=== PATIENT | female | born 1975 | race Caucasian/White ===

== ENCOUNTER 2016-10-13 23:16 | Emergency (ER) | payer MEDICAID, OTHER ==
[2016-10-13 23:27] VITALS: BP 144/86
--- OUTSIDE RECORDS SUMMARY | 2016-10-13 23:39 | XMS REPORT | Continuity of Care Document ---
:1975 Author Organization ([facility]) Address [address] [place] [address] Phone [phone] Care Team Providers Name Role Phone Ruth Rodriguez Primary Care Provider [phone] Source Comments This disclosure is being made pursuant to the Care Everywhere program, applicable federal and state laws, and may not contain all informaitonavailable regarding this patient. ([facility]) Active Allergies and Adverse Reactions No Known Allergies Current Medications Prescription Sig. Disp. Refills Start Date End Date Status albuterol 90 Use 2 Puffs by Active mcg/Actuation inhaler inhalation every 6 hours as needed. insulin glargine inject 35 Units Active (LanTUS) 100 unit/mL subcutaneously at injection vial bedtime. HYDROcodone-acetaminop Take 1 Tab by mouth 12 Tab 0 03/26/2013 Active hen 5-325 mg per every 6 hours as tablet needed. Indications: PAIN cyclobenzaprine 10 mg Take 1 Tab by mouth 3 9 Tab 0 03/26/2013 Active tablet times daily as needed. Indications: MUSCLE SPASM Active Problems Not on file Social History Tobacco Use Types Packs/Day Years Used Date Never Assessed Last Filed Vital Signs Vital Sign Reading Time Taken Blood Pressure 136/76 03/26/2013 11:41 AM CDT Pulse 86 03/26/2013 11:41 AM CDT Temperature 36.8 C (98.2 F) 03/26/2013 11:41 AM CDT Respiratory Rate 12 03/26/2013 11:41 AM CDT Height - - Weight - - Body Mass Index - - Oxygen Saturation 95% 03/26/2013 11:41 AM CDT Plan of Care Health Maintenance Due Date Last Done Comments Hepatitis B Vaccine (1 of 3 - Primary Series) 1975 Tdap Vaccine 1985 Lipid Disorder Screening 1992 MMR Vaccine 1992 Td Vaccine 1992 Cervical Cancer Screening 2004 Mammogram 2014 Influenza Vaccine: Seasonal (#1) 02/18/2016 Results from Last 3 Months Not on file
[2016-10-13] MEDS ORDERED: AMOX TR/POTASSIUM CLAVULANATE 875 MG TABLET PO ONE (23:59)
[2016-10-13] MEDS ORDERED: KETOROLAC TROMETHAMINE 60 MG/2 ML VIAL IM ONE (23:59)
--- NOTE | 2016-10-14 00:01 | ERNOTE ---
Integumentary HPI - General Presenting Symptoms: other - red nose Time Seen by Provider: 10/13/16 23:47 Source: patient Exam Limitations: no limitations - Immun/Allergies/Home Medications Immunizations: IMMUNIZATION HX Immunizations Up to Date Yes History of Influenza Vaccine No Hx Pneumococcal Vaccination No Allergies/Adverse Reactions: Allergies Allergy/AdvReac Type Severity Reaction Status Date / Time Iodinated Contrast Media - Allergy Vomiting Verified 10/12/15 18:15 Oral and [Iodinated Contrast Media - IV Dye] ondansetron HCl Allergy Verified 10/12/15 18:15 [From Zofran (as hydrochloride)] Home Medications: HOME MEDICATIONS Albuterol Sulfate [Ventolin Hfa] 2 puff IH Q4H PRN 10/03/15 [Last Taken Unknown] Amox Tr/Potassium Clavulanate [Augmentin 875-125 Tablet] 875 mg PO Q12H #20 tab 10/14/16 [Last Taken Unknown] Nabumetone [Relafen] 500 mg PO BID #14 tablet 10/14/16 [Last Taken Unknown] - Pain Pain Score: 6 - History of Present Illness Narrative: pt has had increasing redness and pain of the tip of her nose for 1 week Location: Reports: facial Quality: Reports: painful Severity: moderate Exposure: Reports: no cause identified Modifying Factors - (Improves): Reports: nothing Associated Symptoms: Reports: rash - on her head that is itching Review of Systems - Review of Systems Constitutional: Absent: recent illness, fever EYE: Present: no symptoms reported ENT: Present: nose congestion Respiratory: Absent: cough Cardiology: Present: no symptoms reported Gastrointestinal/Abdominal: Present: no symptoms reported Genitourinary: Present: no symptoms reported Musculoskeletal: Present: no symptoms reported Skin: Present: See HPI, rash Neurological: Present: no symptoms reported Endocrine: Present: no symptoms reported Hematologic/Lymphatic: Present: no symptoms reported Psych: Present: no symptoms reported - Patient's Past Medical History Patient History - Medical: Anxiety, Diabetes Type 2, Depression Patient History - Cardiac/Respiratory: Arrhythmias, Asthma, COPD, CVA/Stroke, Hypertension, Hyperlipidemia Patient History - Cancer: No Hx of Cancer Patient History - Surgical Procedures: , Tubal Ligation Patient History - Other: None LMP (females 10-50): 3 weeks - Family History mom Family History - Medical: Family History - Cardiac/Respiratory: COPD dad Family History - Medical: Family History - Cardiac/Respiratory: COPD - Social History Living Situations: home Abuse History: No History of abuse Psych History: No pertinent hx, Hx of Anxiety, Hx of Depression Smoking Status: Current every day smoker Patient requests Smoking Cessation Consult: No Initiate information on Smoking Cessation: No Alcohol Use: occasionally Drug Use: none - Immunizations Immunizations Up to Date: Yes Hx Pneumococcal Vaccination: No History of Influenza Vaccine: No Physical Exam - Physical Exam General Appearance: Present: wd/wn, alert, no apparent distress Eye Exam: Normal inspection: bilateral Ears, Nose, Throat: Present: nasal congestion - and erythema, pharyngeal erythema - mild with PND Neck: Present: normal inspection Respiratory: Present: no respiratory distress, no accessory muscle use Back Exam: Present: normal inspection Extremity Exam: Present: normal inspection Neurological Exam: Present: alert, oriented, normal mood/affect Skin Exam: Present: other - tip of nose is moderately erythematous and tender, no fluctuance, no papules or pustules. ED Progress - Vital Signs Patient's Vital Signs:: I have reviewed the patient's vital signs. Vital Signs: Vital Signs 10/13/16 23:22 Temperature 36.8 C Pulse Rate 117 H Respiratory 18 Rate Blood Pressure 144/86 O2 Sat by Pulse 100 Oximetry - Progress/Reassessment Chief Complaint: Abscess Departure Clinical Impression: Acute bacterial sinusitis Cellulitis Qualifiers: Site of cellulitis: face Qualified Code(s): L03.211 - Cellulitis of face - Departure Disposition: Home self-care Condition: Good Instructions: Sinusitis, Adult, [id number], Cellulitis, Adult, [id number] Additional Instructions: Warm wash cloths to nose for 10-15 minutes as much as every hour. Prescriptions: Amox Tr/Potassium Clavulanate [Augmentin 875-125 Tablet] 875 mg PO Q12H #20 tab Nabumetone [Relafen] 500 mg PO BID #14 tablet
[2016-10-14] MEDS ORDERED: KETOROLAC TROMETHAMINE 60 MG/2 ML VIAL IM ONE (00:05)
[2016-10-14] MEDS ORDERED: AMOX TR/POTASSIUM CLAVULANATE 875 MG TABLET ONE (00:06)
== END 2016-10-14 00:36 | disposition home or self-care (01) ==
LOC: ER 23:16
DX: J01.90 Acute sinusitis, unspecified (principal); B96.89 Other specified bacterial agents as the cause of diseases classified elsewhere; L03.211 Cellulitis of face; F17.210 Nicotine dependence, cigarettes, uncomplicated

== ENCOUNTER 2016-10-16 00:11 | Emergency (ER) | payer OTHER ==
--- OUTSIDE RECORDS SUMMARY | 2016-10-16 00:54 | XMS REPORT | Continuity of Care Document ---
:1975 Author Organization [facility] ([facility]) Address [address] [place] [address] Phone [phone] Care Team Providers Name Role Phone Ruth Rodriguez Primary Care Provider [phone] Source Comments This disclosure is being made pursuant to the Care Everywhere program, applicable federal and state laws, and may not contain all informaitonavailable regarding this patient.[facility] ([facility]) Active Allergies and Adverse Reactions No [...]
--- NOTE | 2016-10-16 01:01 | ERNOTE ---
Medical Problem HPI - General Chief Complaint: Nausea/Vomiting Source: patient Exam Limitations: no limitations - Immun/Allergies/Home Medications Immunizations: IMMUNIZATION HX Immunizations Up to Date No History of Influenza Vaccine No Hx Pneumococcal Vaccination No Allergies/Adverse Reactions: Allergies Iodinated Contrast Media - Oral and [Iodinated Contrast Media - IV Dye] Allergy (Verified 10/16/16 00:27) Vomiting ondansetron HCl [From Zofran (as hydrochloride)] Allergy (Verified 10/16/16 00: 27) Home Medications: HOME MEDICATIONS Albuterol Sulfate [Ventolin Hfa] 2 puff IH Q4H PRN 10/03/15 [Last Taken Unknown] Amox Tr/Potassium Clavulanate [Augmentin 875-125 Tablet] 875 mg PO Q12H #20 tab 10/14/16 [Last Taken Unknown] Nabumetone [Relafen] 500 mg PO BID #14 tablet 10/14/16 [Last Taken 10/15/16 23: 27] Clindamycin HCl [Cleocin HCl] 300 mg PO TID #30 capsule 10/16/16 [Last Taken Unknown] - History of Present History Narrative: Pt was seen here for sinusitis two days ago and now has nausea and abdominal pain Timing: constant, getting worse Severity: moderate Review of Systems - Review of Systems Constitutional: Present: recent illness, fatigue EYE: Present: no symptoms reported ENT: Present: nose pain, nose congestion, other - headache Respiratory: Present: no symptoms reported Cardiology: Present: no symptoms reported Gastrointestinal/Abdominal: Present: no symptoms reported Genitourinary: Present: no symptoms reported Musculoskeletal: Present: no symptoms reported - Patient's Past Medical History Patient History - Medical: Anxiety, Diabetes Type 2, Depression Patient History - Cardiac/Respiratory: Arrhythmias, Asthma, COPD, CVA/Stroke, Hypertension, Hyperlipidemia Patient History - Cancer: No Hx of Cancer Patient History - Surgical Procedures: Cholecystectomy, , Tubal Ligation Patient History - Other: None LMP (Calendar): 09/17/16 - Family History mom Family History - Medical: Family History - Cardiac/Respiratory: COPD dad Family History - Medical: Family History - Cardiac/Respiratory: COPD - Social History Living Situations: home Abuse History: No History of abuse Psych History: Hx of Anxiety, Hx of Depression Smoking Status: Current every day smoker Alcohol Use: none Drug Use: none - Immunizations Immunizations Up to Date: No Hx Pneumococcal Vaccination: No History of Influenza Vaccine: No Physical Exam - Physical Exam General Appearance: Present: wd/wn, alert, no apparent distress Ears, Nose, Throat: Present: nasal congestion - erythema and green discharge Neck: Present: normal inspection, tender lateral Gastrointestinal/Abdominal: Present: normal bowel sounds, tenderness - diffuse upper quads. Absent: guarding, rebound Extremity Exam: Present: normal inspection, normal range of motion Neurological Exam: Present: alert, oriented Skin Exam: Present: normal color, warm/dry ED Progress - Vital Signs Patient's Vital Signs:: I have reviewed the patient's vital signs. Vital Signs: Vital Signs 10/16/16 00:21 Temperature 35.9 C L Pulse Rate 110 H Respiratory 18 Rate Blood Pressure 156/78 O2 Sat by Pulse 99 Oximetry - Progress/Reassessment Chief Complaint: Nausea/Vomiting Departure - Departure Clinical Impression: Acute bacterial sinusitis Disposition: Home Follow Up Needed Condition: Good Instructions: Sinusitis, Adult, [id number], Sinus Headache Additional Instructions: warm packs to your face and some triple antibiotic just inside the nose will help the sore there heal Prescriptions: Clindamycin HCl [Cleocin HCl] 300 mg PO TID #30 capsule
[2016-10-16] MEDS ORDERED: traMADol HCL 50 MG TABLET PO ONE (01:22)
[2016-10-16] MEDS ORDERED: CLINDAMYCIN HCL 150 MG CAPSULE PO ONE (01:23)
[2016-10-16] MEDS ORDERED: CLINDAMYCIN HCL 150 MG CAPSULE ONE (01:27)
[2016-10-16] MEDS ORDERED: traMADol HCL 50 MG TABLET ONE (01:27)
[2016-10-16 01:39] VITALS: BP 149/64
== END 2016-10-16 01:38 | disposition home or self-care (01) ==
LOC: ER 00:11
DX: J32.8 Other chronic sinusitis (principal); B96.89 Other specified bacterial agents as the cause of diseases classified elsewhere; Z72.0 Tobacco use

== ENCOUNTER 2016-10-31 22:08 | Emergency (ER) | payer OTHER ==
[2016-10-31] MEDS ORDERED: CEPHALEXIN MONOHYDRATE 250 MG CAPSULE PO ONE (22:51)
[2016-10-31 22:54] LABS: Urine Bilirubin Negative (NEGATIVE); Urine Blood 250 /ul (NEGATIVE); Urine Ketone Negative (NEGATIVE); Urine Protein 15 mg/dL (NEGATIVE); Urine Specific Gravity 1.015 SP.GR. (1.005-1.010); Urine Urobilinogen Normal (NORMAL)
--- NOTE | 2016-10-31 22:55 | ERNOTE ---
ER Female HPI Date of Service: 10/31/16 Stated Complaint: BLOOD IN URINE Source: patient Exam Limitations: no limitations Immunizations: IMMUNIZATION HX Immunizations Up to Date No History of Influenza Vaccine No Hx Pneumococcal Vaccination No Allergies/Adverse Reactions: Allergies Iodinated Contrast Media - Oral and [Iodinated Contrast Media - IV Dye] Allergy (Verified 10/16/16 00:27) Vomiting ondansetron HCl [From Zofran (as hydrochloride)] Allergy (Verified 10/16/16 00: 27) Home Medications: HOME MEDICATIONS Albuterol Sulfate [Ventolin Hfa] 2 puff IH Q4H PRN 10/03/15 [Last Taken Unknown] Cephalexin Monohydrate [Keflex] 500 mg PO TID #21 capsule 11/01/16 [Last Taken Unknown] Phenazopyridine HCl [Pyridium] 100 mg PO TID PRN #10 tablet 11/01/16 [Last Taken Unknown] - History of Present Illness Narrative: 41 year old with a two day history of dysuria and hematuria. Complaints of mild left back pain. The symptoms are similar to other UTIs that she has had previously. Complaints of chest pressure for the last three days which may be related to GERD. The patient has declined investigating the etiology of the chest pain. Timing: Present: getting worse Quality: Present: severe, burning Onset Location: Present: other Radiation: Present: back Activities at Onset: Present: none Prior Abdominal Problems: Present: none Modifying Factors - (Improves): Present: other Modifying Factors - (Worsens): Present: urinating Associated Symptoms: Present: fever/chills - chills infrequently Review of Systems - Review of Systems Constitutional: Present: chills EYE: Present: no symptoms reported ENT: Present: no symptoms reported Respiratory: Present: no symptoms reported Cardiology: Present: no symptoms reported Gastrointestinal/Abdominal: Present: no symptoms reported Genitourinary: Present: See HPI Musculoskeletal: Present: no symptoms reported Skin: Present: no symptoms reported Neurological: Present: no symptoms reported Endocrine: Present: no symptoms reported Hematologic/Lymphatic: Present: no symptoms reported - Patient's Past Medical History Patient History - Medical: Anxiety, Diabetes Type 2, Depression Patient History - Cardiac/Respiratory: Arrhythmias, Asthma, COPD, CVA/Stroke, Hypertension, Hyperlipidemia Patient History - Cancer: No Hx of Cancer Patient History - Surgical Procedures: Cholecystectomy, , Tubal Ligation Patient History - Other: None LMP (females 10-50): last week LMP (Calendar): 09/17/16 - Family History mom Family History - Medical: Family History - Cardiac/Respiratory: COPD dad Family History - Medical: Family History - Cardiac/Respiratory: COPD - Social History Living Situations: spouse Abuse History: No History of abuse Psych History: Hx of Anxiety, Hx of Depression Smoking Status: Current every day smoker Have you smoked in the past 12 months: Yes Alcohol Use: rarely Drug Use: none - Immunizations Immunizations Up to Date: No Hx Pneumococcal Vaccination: No History of Influenza Vaccine: No Physical Exam - Physical Exam General Appearance: Present: no apparent distress Eye Exam: Normal inspection: bilateral, PERRL: bilateral Ears, Nose, Throat: Present: normal ENT inspection Neck: Present: normal inspection Respiratory: Present: no respiratory distress Cardiovascular/Chest: Present: regular rate, rhythm Gastrointestinal/Abdominal: Present: nontender, nondistended Back Exam: Present: normal inspection Extremity Exam: Present: normal inspection Neurological Exam: Present: alert, oriented, normal mood/affect, 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 - Vital Signs Vital Signs: Vital Signs 10/31/16 22:16 Temperature 37.0 C Pulse Rate 88 Respiratory 14 Rate Blood Pressure 162/86 O2 Sat by Pulse 100 Oximetry - Progress/Reassessment Chief Complaint: Genitourinary Problem Progress Note-Subjective: 11/01/16 00:54 Given Pyridium 100 mg po and Keflex 500 mg po. Departure Clinical Impression: UTI (urinary tract infection) - Departure Disposition: Home self-care Condition: Good Instructions: Urinary Tract Infection, Adult, [id number] Print Language: Slovak Additional Instructions: Drink lots of water to keep the urine dilute. Cranberry juice is useful also. Prescriptions: Cephalexin Monohydrate [Keflex] 500 mg PO TID #21 capsule Phenazopyridine HCl [Pyridium] 100 mg PO TID PRN #10 tablet PRN Reason: Pain
[2016-10-31] MEDS ORDERED: CEPHALEXIN MONOHYDRATE 250 MG CAPSULE ONE (22:57)
[2016-10-31 23:08] LABS: Urine Appearance Slightly Cloudy; Urine Color Yellow; Urine Nitrite Positive (NEGATIVE)
[2016-10-31 23:09] LABS: Urine Bacteria 2+; Urine RBC >50 /hpf (0-5); Urine Renal Epithelial Cell Few - 1+ /hpf; Urine Squamous Epithelial Cell Moderate - 2+ /hpf; Urine WBC 25-50 /hpf (0-5)
[2016-11-01 01:01] VITALS: BP 144/74
--- OUTSIDE RECORDS SUMMARY | 2016-11-01 01:32 | XMS REPORT | Continuity of Care Document ---
:1975 Author Organization [facility] ([facility]) Address [address] [place] [address] Phone [phone] Care Team Providers Name Role Phone Ruth Rodriguez Primary Care Provider [phone] Source Comments This disclosure is being made pursuant to the Care Everywhere program, applicable federal and state laws, and may not contain all informaitonavailable regarding this patient.[facility] ([facility]) Active Allergies and Adverse Reactions No [...]
== END 2016-11-01 01:00 | disposition home or self-care (01) ==
LOC: ER 22:08
DX: N39.0 Urinary tract infection, site not specified (principal); F17.210 Nicotine dependence, cigarettes, uncomplicated; M54.5 Low back pain; K21.9 Gastro-esophageal reflux disease without esophagitis

== ENCOUNTER 2017-04-01 18:53 | Emergency (ER) | payer OTHER ==
--- NOTE | 2017-04-01 19:08 | ERNOTE ---
<Denise Eng - Last Filed: 04/01/17 19:44> Medical Problem HPI - General Time Seen by Provider: 04/01/17 19:01 Source: patient Exam Limitations: no limitations - Immun/Allergies/Home Medications Immunizations: IMMUNIZATION HX Immunizations Up to Date Yes History of Influenza Vaccine No Hx Pneumococcal Vaccination No Allergies/Adverse Reactions: Allergies Iodinated Contrast- Oral and IV Dye [Iodinated Contrast Media - IV Dye] Allergy (Verified 04/01/17 19:10) Vomiting ondansetron HCl [From Zofran (as hydrochloride)] Allergy (Verified 04/01/17 19: 10) Home Medications: HOME MEDICATIONS Albuterol Sulfate [Ventolin Hfa] 2 puff IH Q4H PRN 10/03/15 [Last Taken Unknown] Insulin Glargine,Hum.rec.anlog [Lantus] 20 units SC HS 04/02/17 [Last Taken Unknown] Insulin Lispro [Humalog] unit SQ TID 04/02/17 [Last Taken Unknown] - History of Present History Narrative: here for blurry vision and feeling weak since this am. Denies any headaches or nausea or vomiting. Symptoms began at 6 am this am however pt came to ED at 1900 Review of Systems - Review of Systems Constitutional: Present: weakness, fatigue, malaise EYE: Present: blurred vision - weakness is generalized and vision is a new finding and patient denies having blurred vision yesterday. He denies having a headache ENT: Present: no symptoms reported Respiratory: Present: no symptoms reported Cardiology: Present: no symptoms reported Gastrointestinal/Abdominal: Present: no symptoms reported Genitourinary: Present: no symptoms reported Musculoskeletal: Present: other - she complains of generalized weakness and upper arms and legs Skin: Present: no symptoms reported Neurological: Present: See HPI, weakness - this is generalized no focal neurological deficits reported. - Patient's Past Medical History Patient History - Medical: Anxiety, Diabetes Type 2, Depression Patient History - Cardiac/Respiratory: Arrhythmias, Asthma, COPD, CVA/Stroke, Hypertension, Hyperlipidemia Patient History - Cancer: No Hx of Cancer Patient History - Surgical Procedures: Back Surgery, Cholecystectomy, , Tubal Ligation Patient History - Other: None LMP (Calendar): 09/17/16 - Family History mom Family History - Medical: Family History - Cardiac/Respiratory: COPD dad Family History - Medical: Family History - Cardiac/Respiratory: COPD - Social History Living Situations: home Abuse History: No History of abuse Psych History: Hx of Anxiety, Hx of Depression Alcohol Use: rarely Drug Use: none - Immunizations Immunizations Up to Date: Yes Hx Pneumococcal Vaccination: No History of Influenza Vaccine: No Physical Exam - Physical Exam General Appearance: Present: wd/wn, alert - patient is awake and alert in no acute distress she is very sad fell and she starts crying stating that she has issues between herself and her spouse., no apparent distress Head Exam: Present: normal inspection, no evidence of injury Eye Exam: Normal inspection: bilateral, PERRL: bilateral, EOMI: bilateral Ears, Nose, Throat: Present: normal ENT inspection Neck: Present: normal inspection, nontender, supple, full range of motion. 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 DTR intact in patellar and Achilles reflexes. Skin Exam: Present: normal color, warm/dry Lymphatic Exam: Present: no adenopathy ED Progress - Results and Orders Patient's Lab Results:: I have reviewed the patient's lab results. - Vital Signs Patient's Vital Signs:: I have reviewed the patient's vital signs. - Transfer of Care Physician Sign Out: Denise Eng Receiving Physician: Kyle Kapoor Pending Results: CT/MRI results, Labs Expected Disposition: Discharge, Transfer Departure - Departure Clinical Impression: Weakness Disposition: Home Follow Up Needed Condition: Good Instructions: Weakness, [id number] Additional Instructions: See your primary care doctor as soon as possible for further testing or referral <Kyle Kapoor - Last Filed: 04/06/17 22:09> Medical Problem HPI - Immun/Allergies/Home Medications Immunizations: IMMUNIZATION HX Immunizations Up to Date Yes History of Influenza Vaccine No Hx Pneumococcal Vaccination No ED Progress - Results and Orders Patient's Lab Results:: I have reviewed the patient's lab results. Results and Orders: Laboratory Tests 04/01/17 04/01/17 04/01/17 19:15 19:15 19:15 WBC 8.9 Hgb 12.3 L Hct 35.7 L Plt Count 316 ESR D-Dimer Sodium 137 Potassium 4.3 Chloride 102 BUN 12 Creatinine 0.71 Random Glucose 307 H Calcium 8.2 Total Bilirubin 0.1 ALT 20 Alkaline Phosphatase 88 Troponin I Less than 0.017 C-Reactive Prot, Quant 0.4 Total Protein 6.8 Albumin 2.9 L TSH 1.510 Urine Color Urine Appearance Urine pH Ur Specific [place] Urine Protein Urine Glucose (UA) Urine Ketones Urine Blood Urine Nitrate Urine Bilirubin Urine Urobilinogen Ur Leukocyte Esterase Urine RBC Urine WBC Ur Epithelial Cells Urine Bacteria Urine Culture Comments Urine Opiates Screen Barbiturate Screen Ur Phencyclidine Scrn Urine Amphetamine U Benzodiazepines Scrn Urine Cocaine Screen Urine Marijuana (THC) 04/01/17 04/01/17 04/01/17 19:15 19:42 20:14 WBC Hgb Hct Plt Count ESR 12 D-Dimer 0.29 D Sodium Potassium Chloride BUN Creatinine Random Glucose Calcium Total Bilirubin ALT Alkaline Phosphatase Troponin I C-Reactive Prot, Quant Total Protein Albumin TSH Urine Color Urine Appearance Urine pH Ur Specific [place] Urine Protein Urine Glucose (UA) Urine Ketones Urine Blood Urine Nitrate Urine Bilirubin Urine Urobilinogen Ur Leukocyte Esterase Urine RBC Urine WBC Ur Epithelial Cells Urine Bacteria Urine Culture Comments Urine Opiates Screen Negative Barbiturate Screen Negative Ur Phencyclidine Scrn Negative Urine Amphetamine Negative U Benzodiazepines Scrn Negative Urine Cocaine Screen Negative Urine Marijuana (THC) Negative 04/01/17 Unknown WBC Hgb Hct Plt Count ESR D-Dimer Sodium Potassium Chloride BUN Creatinine Random Glucose Calcium Total Bilirubin ALT Alkaline Phosphatase Troponin I C-Reactive Prot, Quant Total Protein Albumin TSH Urine Color Yellow Urine Appearance Clear Urine pH 5.0 Ur Specific [place] 1.020 Urine Protein Negative Urine Glucose (UA) >=1000 H Urine Ketones Negative Urine Blood Negative Urine Nitrate Negative Urine Bilirubin Negative Urine Urobilinogen Normal Ur Leukocyte Esterase Negative Urine RBC None seen Urine WBC None seen Ur Epithelial Cells 5-10 H Urine Bacteria 4+ H Urine Culture Comments No culture indicated Urine Opiates Screen Barbiturate Screen Ur Phencyclidine Scrn Urine Amphetamine U Benzodiazepines Scrn Urine Cocaine Screen Urine Marijuana (THC) - Vital Signs Vital Signs: Vital Signs 04/01/17 04/01/17 04/01/17 18:59 19:00 19:45 Temperature 36.9 C Pulse Rate 96 83 76 Respiratory 20 18 19 Rate Blood Pressure 127/91 127/91 134/63 O2 Sat by Pulse 98 97 96 Oximetry 04/01/17 04/01/17 04/01/17 20:16 20:46 21:16 Temperature Pulse Rate 75 78 78 Respiratory 20 18 18 Rate Blood Pressure 140/95 146/75 122/38 O2 Sat by Pulse Oximetry 04/01/17 04/01/17 04/01/17 21:46 22:00 22:15 Temperature 36.5 C Pulse Rate 79 75 79 Respiratory 21 H 19 16 Rate Blood Pressure 129/61 123/61 138/65 O2 Sat by Pulse 98 Oximetry 04/01/17 04/01/17 22:54 23:10 Temperature Pulse Rate 74 79 Respiratory 18 13 Rate Blood Pressure 129/74 104/44 O2 Sat by Pulse 95 99 Oximetry - Progress/Reassessment Progress Note-Subjective: 04/02/17 00:31 discussed her mostly normal findings and her elevated blood sugars that can cause many of these symptoms. She and her agree that her blood sugars have been this high 300-400 for years. I told them that there was nothing else I could do to further explore her symptoms and she would need outpatient evaluation to further explore her symptoms
[2017-04-01 19:21] LABS: Hematocrit 35.7 % (37.0-47.0); Hemoglobin 12.3 gm/dL (12.5-16.0); Mean Corpuscular Hemoglobin 27.6 pg (27-31); Mean Corpuscular Hgb Conc 34.5 g/dl (32-36); Mean Platelet Volume 9.9 fl (6.0-9.5); Neutrophil # 4.8 K/mm3 (1.3-6.0); Neutrophil % 54.2 % (42-75.0); Platelet Count 316 K/mm3 (150-450); Red Blood Count 4.46 M/mm3 (4.2-5.4); Red Cell Distribution Width 14.2 % (11.5-14.0); White Blood Count 8.9 K/mm3 (4.0-10.5)
[2017-04-01 19:43] LABS: Albumin * 2.9 gm/dl (3.4-5.0); Anion Gap 14.3 mmol/L (6.8-13.8); BUN/Creatinine Ratio 16.9 (9.0-21.6); Bilirubin, Total 0.1 mg/dL (0.0-1.1); Ca. Corrected For Albumin 8.8 mg/dL (8.4-10.2); Calcium * 8.2 mg/dL (7.9-10.9); Potassium 4.3 mmol/L (3.4-4.6); TSH * 1.51 uIU/mL (0.358-3.74); Total Protein 6.8 gm/dL (6.2-8.2)
[2017-04-01 20:23] LABS: Cocaine Ur Negative (NEGATIVE); Urine Barbiturate Negative (NEGATIVE); Urine Benzodiazepines Negative (NEGATIVE); Urine Opiates Negative (NEGATIVE); Urine PCP Negative (NEGATIVE); Urine THC Negative (NEGATIVE)
[2017-04-01 20:31] LABS: CRP 0.4 mg/dL (0.0-0.9); Troponin I Less than 0.017 ng/ml (0.00-0.10)
[2017-04-01] MEDS ORDERED: ACETAMINOPHEN 500 MG TABLET PO ONE (21:48)
[2017-04-01] MEDS ORDERED: NORMAL SALINE 1,000 ML IV ONE (21:52)
[2017-04-01 21:54] LABS: Urine Bilirubin Negative (NEGATIVE); Urine Blood Negative /ul (NEGATIVE); Urine Ketone Negative (NEGATIVE); Urine Nitrite Negative (NEGATIVE); Urine Protein Negative (NEGATIVE); Urine Urobilinogen Normal (NORMAL)
[2017-04-01 22:17] LABS: Urine Appearance Clear; Urine Color Yellow
[2017-04-01 22:18] LABS: Urine Bacteria 4+; Urine RBC None Seen /hpf (0-5); Urine WBC None Seen /hpf (0-5)
[2017-04-02 00:48] VITALS: BP 137/67
== END 2017-04-02 00:45 | disposition home or self-care (01) ==
LOC: ER 18:53
DX: R53.1 Weakness (principal); E11.9 Type 2 diabetes mellitus without complications; Z79.4 Long term (current) use of insulin

== ENCOUNTER 2017-05-12 21:57 | Emergency (ER) | payer OTHER ==
[2017-05-12 23:33] VITALS: BP 138/68
--- NOTE | 2017-05-12 23:39 | ERNOTE ---
Time Seen by Provider: 05/12/17 22:42 Stated Complaint: SORE THROAT, SINUS PRESSURE, ? FEVER Immunizations: IMMUNIZATION HX Immunizations Up to Date Yes History of Influenza Vaccine No Hx Pneumococcal Vaccination No Allergies/Adverse Reactions: Allergies Iodinated Contrast- Oral and IV Dye [Iodinated Contrast Media - IV Dye] Allergy (Verified 05/12/17 22:14) Vomiting ondansetron HCl [From Zofran (as hydrochloride)] Allergy (Verified 05/12/17 22: 14) Home Medications: HOME MEDICATIONS Albuterol Sulfate [Ventolin Hfa] 2 puff IH Q4H PRN 10/03/15 [Last Taken Unknown] Insulin Glargine,Hum.rec.anlog [Lantus] 20 units SC HS 04/02/17 [Last Taken Unknown] Insulin Lispro [Humalog] unit SQ TID 04/02/17 [Last Taken Unknown] Albuterol Sulfate [Ventolin HFA] 1 puff IH Q6H #2 inhaler 05/12/17 [Last Taken Unknown] Clopidogrel Bisulfate [Plavix] 75 mg PO 05/12/17 [Last Taken Unknown] Lisinopril [Prinivil] 10 mg PO DAILY 05/12/17 [Last Taken Unknown] Metoprolol Tartrate [Lopressor] 25 mg PO BID 05/12/17 [Last Taken Unknown] Omeprazole 40 mg PO DAILY PRN 05/12/17 [Last Taken Unknown] - History of Present Ilness Narrative: 41-year-old female comes to emergency Department with 3 days of cough which is intermittently productive of a clear colored sputum. He is also complaining of a burning sensation to her eyes and scratching to the back of her throat. She doesn't have any nausea or vomiting. She says today she thought she had a fever which triggered her to come to the emergency department. She has a sick child that she's been exposed to had croup in another child who had strep. Patient has no other complaints Review of Systems - Review of Systems Constitutional: Present: malaise EYE: Present: no symptoms reported ENT: Present: nose congestion, sore throat Respiratory: Present: cough Cardiology: Present: no symptoms reported Gastrointestinal/Abdominal: Present: no symptoms reported Genitourinary: Present: no symptoms reported Musculoskeletal: Present: no symptoms reported Skin: Present: no symptoms reported Neurological: Present: no symptoms reported Endocrine: Present: no symptoms reported Hematologic/Lymphatic: Present: no symptoms reported Psych: Present: no symptoms reported All Other Systems: All systems neg except as marked - Patient's Past Medical History Patient History - Medical: Anxiety, Diabetes Type 2, Depression Patient History - Cardiac/Respiratory: Arrhythmias, Asthma, COPD, CVA/Stroke, Hypertension, Hyperlipidemia, Myocardial Infarction Patient History - Cancer: No Hx of Cancer Patient History - Surgical Procedures: Back Surgery, Cholecystectomy, Cardiac stent, , Tubal Ligation Patient History - Other: None LMP (Calendar): 04/20/17 - Family History mom Family History - Medical: Family History - Cardiac/Respiratory: COPD dad Family History - Medical: Family History - Cardiac/Respiratory: COPD - Social History Living Situations: home Abuse History: No History of abuse Psych History: Hx of Anxiety, Hx of Depression Smoking Status: Current every day smoker Alcohol Use: occasionally Drug Use: none - Immunizations Immunizations Up to Date: Yes Hx Pneumococcal Vaccination: No History of Influenza Vaccine: No Physical Exam - Physical Exam General Appearance: Present: wd/wn, alert, no apparent distress Head Exam: Present: normal inspection, no evidence of injury Eye Exam: Normal inspection: bilateral, PERRL: bilateral Ears, Nose, Throat: Present: other - patient has uvular swelling. No pharyngeal erythema. No tonsillar exudate. Neck: Present: normal inspection Respiratory: Present: no respiratory distress, lungs clear, other - lungs are completely clear without crackles wheezes or cough Cardiovascular/Chest: Present: regular rate, rhythm, no murmur, normal peripheral pulses Gastrointestinal/Abdominal: Present: normal bowel sounds, nontender, nondistended, soft, no organomegaly Back Exam: Present: normal inspection, normal range of motion, no CVA tenderness Extremity Exam: Present: normal inspection, non-tender, no edema Neurological Exam: Present: alert, oriented, normal mood/affect, no motor/ sensory deficits Skin Exam: Present: normal color, warm/dry Lymphatic Exam: Present: no adenopathy ED Progress - Vital Signs Patient's Vital Signs:: I have reviewed the patient's vital signs. Vital Signs: Vital Signs 05/12/17 05/12/17 05/12/17 22:08 22:38 23:32 Temperature 37.0 C 36.8 C Pulse Rate 95 95 90 Respiratory 18 16 Rate Blood Pressure 161/93 138/68 O2 Sat by Pulse 100 96 Oximetry - Progress/Reassessment Chief Complaint: Upper Respiratory Symptoms Departure Clinical Impression: Upper respiratory infection - Departure Disposition: Home self-care Condition: Stable Instructions: Upper Respiratory Infection, Adult, [id number] Additional Instructions: As we discussed her symptoms are those of a viral upper respiratory syndrome. This is something her body should fight off over the next couple of days. He continue using Motrin to help with the aches in general not feeling good associated with this. Call your family doctor and set up a follow-up appointment. Use the inhaler as needed. Return for new or worrisome symptoms Prescriptions: Albuterol Sulfate [Ventolin HFA] 1 puff IH Q6H #2 inhaler
== END 2017-05-12 23:40 | disposition home or self-care (01) ==
LOC: ER 21:57
DX: J06.9 Acute upper respiratory infection, unspecified (principal); I25.2 Old myocardial infarction; I10 Essential (primary) hypertension; F17.200 Nicotine dependence, unspecified, uncomplicated

== ENCOUNTER 2017-05-26 08:55 | Emergency (ER) | payer OTHER ==
[2017-05-26 09:08] VITALS: BP 168/95
--- NOTE | 2017-05-26 09:30 | ERNOTE ---
ER Female HPI Stated Complaint: YEAST INFECTION Presenting Symptoms: vaginal discharge Time Seen by Provider: 05/26/17 09:14 Source: patient Exam Limitations: no limitations Immunizations: IMMUNIZATION HX Immunizations Up to Date Yes History of Influenza Vaccine No Hx Pneumococcal Vaccination No Allergies/Adverse Reactions: Allergies Iodinated Contrast- Oral and IV Dye [Iodinated Contrast Media - IV Dye] Allergy (Verified 05/26/17 09:08) Vomiting ondansetron HCl [From Zofran (as hydrochloride)] Allergy (Verified 05/26/17 09: 08) Home Medications: HOME MEDICATIONS Albuterol Sulfate [Ventolin Hfa] 2 puff IH Q4H PRN 10/03/15 [Last Taken Unknown] Insulin Glargine,Hum.rec.anlog [Lantus] 20 units SC HS 04/02/17 [Last Taken Unknown] Insulin Lispro [Humalog] 3 unit SQ TID 04/02/17 [Last Taken Unknown] Albuterol Sulfate [Ventolin HFA] 1 puff IH Q6H #2 inhaler 05/12/17 [Last Taken Unknown] Clopidogrel Bisulfate [Plavix] 75 mg PO DAILY 05/12/17 [Last Taken Unknown] Lisinopril [Prinivil] 10 mg PO DAILY 05/12/17 [Last Taken Unknown] Metoprolol Tartrate [Lopressor] 25 mg PO BID 05/12/17 [Last Taken Unknown] Omeprazole 40 mg PO DAILY PRN 05/12/17 [Last Taken Unknown] Fluconazole [Diflucan] 150 mg PO ONCE #1 tab 05/26/17 [Last Taken Unknown] - History of Present Illness Narrative: Patient presents with chronic recurring vaginal and oral yeast infections from allowing her blood sugars to remain in the 300-400 range. Patient states that all this required one dose of Diflucan and it always knocks it out. Timing: Present: constant Quality: Present: moderate Onset Location: Present: vaginal, other - oral Radiation: Present: none Activities at Onset: Present: none Sexual [place] History: Present: single partner Review of Systems - Review of Systems Constitutional: Present: See HPI EYE: Present: no symptoms reported ENT: Present: See HPI Respiratory: Present: no symptoms reported Cardiology: Present: no symptoms reported Gastrointestinal/Abdominal: Present: no symptoms reported Genitourinary: Present: See HPI Musculoskeletal: Present: no symptoms reported Skin: Present: no symptoms reported Neurological: Present: no symptoms reported Endocrine: Present: no symptoms reported Hematologic/Lymphatic: Present: no symptoms reported Psych: Present: no symptoms reported - Patient's Past Medical History Patient History - Medical: Anxiety, Diabetes Type 2, Depression Patient History - Cardiac/Respiratory: Arrhythmias, Asthma, COPD, CVA/Stroke, Hypertension, Hyperlipidemia, Myocardial Infarction Patient History - Cancer: No Hx of Cancer Patient History - Surgical Procedures: Back Surgery, Cholecystectomy, Cardiac stent, , Tubal Ligation Patient History - Other: None - Family History mom Family History - Medical: Family History - Cardiac/Respiratory: COPD dad Family History - Medical: Family History - Cardiac/Respiratory: COPD - Social History Living Situations: home Abuse History: No History of abuse Psych History: Hx of Anxiety, Hx of Depression - Immunizations Immunizations Up to Date: Yes Hx Pneumococcal Vaccination: No History of Influenza Vaccine: No Physical Exam - Physical Exam General Appearance: Present: wd/wn, alert, no apparent distress Head Exam: Present: normal inspection Eye Exam: Normal inspection: bilateral, PERRL: bilateral Ears, Nose, Throat: Present: normal ENT inspection, normal pharynx, other - whitish coating on the surface of the tongue Neck: Present: normal inspection, nontender Respiratory: Present: no respiratory distress, normal breath sounds, no accessory muscle use, chest nontender, lungs clear Cardiovascular/Chest: Present: regular rate, rhythm, no murmur, normal peripheral pulses Gastrointestinal/Abdominal: Present: normal bowel sounds, nontender, nondistended, soft, no organomegaly Rectal Exam: Present: deferred Back Exam: Present: normal inspection, normal range of motion Extremity Exam: Present: normal inspection, non-tender, no edema, normal range of motion Neurological Exam: Present: alert, oriented, normal mood/affect Skin Exam: Present: normal color, warm/dry Lymphatic Exam: Present: no adenopathy ED Progress - Vital Signs Patient's Vital Signs:: I have reviewed the patient's vital signs. Vital Signs: Vital Signs 05/26/17 09:04 Temperature 36.6 C Pulse Rate 113 H Respiratory 12 Rate Blood Pressure 168/95 O2 Sat by Pulse 99 Oximetry - Progress/Reassessment Chief Complaint: Genitourinary Problem Plan - Plan Plan: Patient will be given a 2500-calorie ADA diet and a one-time dose of Diflucan. Patient agrees to follow-up with her family physician regarding her chronic elevated blood sugar, she is aware this is likely the cause of her frequent yeast infections. Departure Clinical Impression: Thrush, oral, Vaginal candidiasis - Departure Disposition: Home self-care Condition: Good Instructions: Thrush, Adult, [id number], Vaginal Yeast Infection, Adult Referrals: Leno Laird MD [Primary Care Provider] - Prescriptions: Fluconazole [Diflucan] 150 mg PO ONCE #1 tab
== END 2017-05-26 09:38 | disposition home or self-care (01) ==
LOC: ER 08:55
DX: B37.0 Candidal stomatitis (principal); B37.3 Candidiasis of vulva and vagina; E11.9 Type 2 diabetes mellitus without complications; J44.9 Chronic obstructive pulmonary disease, unspecified; I10 Essential (primary) hypertension; E78.5 Hyperlipidemia, unspecified; I25.2 Old myocardial infarction; Z86.73 Personal history of transient ischemic attack (TIA), and cerebral infarction without residual deficits; F41.8 Other specified anxiety disorders